=== PATIENT | female | born 1965 | race Caucasian/White ===

== ENCOUNTER 2018-02-12 11:57 | Emergency (ER) | payer OTHER, MEDICAID ==
[2018-02-12] MEDS: HYDROCODONE/APAP (5/325) TAB PO (12:47)
== END 2018-02-12 14:29 | disposition home or self-care (01) ==
LOC: FTE 11:57
DX: M54.2 Cervicalgia (principal); R07.9 Chest pain, unspecified; M79.671 Pain in right foot; E11.9 Type 2 diabetes mellitus without complications
CPT/HCPCS: 71045; 72125; 73630; 99284-25